=== PATIENT | male | born 1965 | race Caucasian/White ===

== ENCOUNTER 2016-12-29 12:48 | Emergency (ER) | payer SELFPAY ==
[~2016-12-29] VITALS: Ht 167.6 cm; Wt 63.5 kg
[2016-12-29 12:50] VITALS: BP 107/72; PULSE 87; RESP 20; TEMP 97.4; O2SAT 96
[2016-12-29] MEDS ORDERED: BP MED PO (13:03)
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
[2016-12-29] MEDS ORDERED: COZA25TA PO (13:22)
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
[2016-12-29] MEDS ORDERED: HYDR-3516 PO (14:07)
[2016-12-29 14:34] VITALS: BP 110/74
== END 2016-12-29 14:35 | disposition home or self-care (01) ==
LOC: PHED 12:48
DX: S43.109A Unspecified dislocation of unspecified acromioclavicular joint, initial encounter (principal); I10 Essential (primary) hypertension; V29.3XXA Motorcycle rider (driver) (passenger) injured in unspecified nontraffic accident, initial encounter; W23.0XXA Caught, crushed, jammed, or pinched between moving objects, initial encounter; Y93.89 Activity, other specified; Y92.89 Other specified places as the place of occurrence of the external cause; Y99.9 Unspecified external cause status
CPT/HCPCS: 73000; 99283